=== PATIENT | female | born 1945 | race African-American/Black ===

== ENCOUNTER → 2017-04-17 | Outpatient (CLI) | payer MEDICARE, BC ==
[2014-11-19 10:20] VITALS: BP 114/58
[~2017-04-17] MED LIST: ATEN100T; CHOL10003 PO; LOSA1TAB22
--- NOTE | 2017-04-17 10:02 | RAD ---
DATE: 04/17/2017 EXAM: DIGITAL SCREEN BILAT W/CAD HISTORY: Routine screening COMPARISON: 04/25/2016, 04/15/2015 This study was interpreted with the benefit of Computerized Aided Detection (CAD). The breast parenchyma shows scattered fibroglandular densities. Breast parenchyma level B. FINDINGS: The fibroglandular pattern in the breasts is somewhat nodular in character. The known cyst in the lateral aspect of the left breast has decreased in size, now measure approximately 17 mm in the CC projection. There is an 11 mm nodule in the medial aspect of the left breast at approximately the 9:00 location which appears to have increased slightly in size over the last 2 exams. No other new or enlarging breast densities are seen. Benign type calcifications appear unchanged. No suspicious microcalcifications have developed. IMPRESSION: Slight interval enlargement of a small medial left breast nodule. In view of the patient's history of cysts, this is also probably a cyst, however, sonographic evaluation is suggested for confirmation. BI-RADS CATEGORY: 0 INCOMPLETE: NEEDS ADDITIONAL IMAGING EVALUATION AND/OR PRIOR MAMMOGRAMS FOR COMPARISON. RECOMMENDED FOLLOW-UP: ADD ADDITIONAL IMAGING PQRS compliance statement: Patient information was entered into a reminder system with a target due date for the next mammogram. Mammography is a sensitive method for finding small breast cancers, but it does not detect them all and is not a substitute for careful clinical examination. A negative mammogram does not negate a clinically suspicious finding and should not result in delay in biopsying a clinically suspicious abnormality. "Our facility is accredited by the [employer] Mammography Program."
== END | disposition home or self-care (01) ==
LOC: MAMMO 08:29
PROVIDERS: ATTEND Family Medicine
DX: Z12.31 Encounter for screening mammogram for malignant neoplasm of breast (principal)
CPT/HCPCS: G0202; 77067

== ENCOUNTER → 2017-04-19 | Outpatient (CLI) | payer MEDICARE, BC ==
[2014-11-19 10:20] VITALS: BP 114/58
--- NOTE | 2017-04-19 11:24 | RAD ---
Indication: Abnormal mammogram. Technique: Limited left breast ultrasound was performed. Multiple screening mammograms back to March 25, 2013 were reviewed in comparison. Patient has had multiple previous ultrasounds of the left breast, although never of the 9:00 position. Findings: Within the 9:00 position of the left breast 2.5 cm from the nipple there is a 9 mm oval-shaped hypoechoic mass with increased through transmission. This has a few internal echoes. It has no associated color flow. Reviewing the previous mammograms, change is very minimal going back to 2014, lesion has increased slightly when compared to 2012 and 2013. This is most likely a complicated cyst. Impression: Probably benign complicated cyst within the left breast. BI-RADS Category 3. Recommend 6 month follow-up left breast ultrasound.
== END | disposition home or self-care (01) ==
LOC: US 10:33
PROVIDERS: ATTEND Family Medicine
DX: R92.8 Other abnormal and inconclusive findings on diagnostic imaging of breast (principal)
CPT/HCPCS: 76641

== ENCOUNTER → 2017-10-26 | Outpatient (CLI) | payer MEDICARE, BC | END | disposition home or self-care (01) | LOC: US 09:49 | DX: N60.02 Solitary cyst of left breast (principal) | CPT/HCPCS: 76641 ==

== ENCOUNTER → 2017-11-17 | Outpatient (CLI) | payer MEDICARE, BC | END | disposition home or self-care (01) | LOC: KCIC DEXA 11:28 | DX: Z13.820 Encounter for screening for osteoporosis (principal); Z78.0 Asymptomatic menopausal state | CPT/HCPCS: 77080 ==

== ENCOUNTER → 2018-04-18 | Outpatient (CLI) | payer MEDICARE, BC ==
[2014-11-19 10:20] VITALS: BP 114/58
--- NOTE | 2018-04-18 10:07 | RAD ---
DATE: April 18, 2018 EXAM: MAMMO FEMI SCREENING BILATERAL, BREAST LEFT SONOGRAM HISTORY: Follow-up of complex cyst of the left breast seen sonographically. Annual screening mammogram. COMPARISON: Sonograms dated April 19, 2017 and October 26, 2017. Mammograms dated 2015 and 2017 BILATERAL 3-D SCREENING MAMMOGRAPHY 2-D digital mammographic views of both breasts were performed in the CC and MLO projections. 3-D digital tomosynthesis images of both breasts were performed in the CC and MLO projections and reviewed on a computer workstation. This study was interpreted with the benefit of Computerized Aided Detection (CAD). FINDINGS: Breast Density: SCATTERED The breast parenchyma shows scattered fibroglandular densities. Breast parenchyma level B.. Bilateral breast nodularity is again evident and is stable on the right side. The cyst seen within the upper-outer quadrant of the left breast on the previous studies has decreased in size. There is a nodule within the inferior medial aspect of the left breast which is stable mammographically and corresponds to the complex cyst seen sonographically. Coarse calcifications of the anterior aspect of the left breast are stable. No new nodules or spiculated lesions or architectural distortion or clustering of pleomorphic microcalcifications are evident. LEFT BREAST SONOGRAPHY: High-resolution sonography of the 9:00 position of the left breast 2.5 cm the nipple again reveals a complex cyst measuring 10 in greatest dimension. This is unchanged. No abnormal color flow and seen within it. IMPRESSION: No mammographic indicators for malignancy. Stable complex cyst at the 9:00 position of left breast. Recommend bilateral screening mammography in one year and left breast sonogram in one year. BI-RADS CATEGORY: 3 PROBABLE BENIGN-SHORT TERM F/U RECOMMENDED FOLLOW-UP: 12M 12 MONTH FOLLOW-UP PQRS compliance statement: Patient information was entered into a reminder system with a target due date April 19, 2019 for the next mammogram. Mammography is a sensitive method for finding small breast cancers, but it does not detect them all and is not a substitute for careful clinical examination. A negative mammogram does not negate a clinically suspicious finding and should not result in delay in biopsying a clinically suspicious abnormality. "Our facility is accredited by the [employer] Mammography [employer]." The patient's breast density may affect the ability of mammography to detect breast cancer. There are 4 categories of breast density, A, B, C and D. Breast density A means that most of the breast tissue is replaced with adipose tissue and therefore is not dense. Breast density B means that the breast tissue is mildly dense and scattered. Breast density C means that the breast tissue is heterogeneously dense. Breast density D means that the breast tissue is very dense. Breast densities especially C and D may decrease the sensitivity of mammography to detect breast cancer. Therefore, the patient may benefit from 3-D breast mammography (3D breast tomography) as a part of their screening mammogram. Insurance may or may not pay for this additional imaging. The patient's breast density based on today's mammogram is category B.
== END | disposition home or self-care (01) ==
LOC: MAMMO 08:35
PROVIDERS: ATTEND Internal Medicine
DX: Z12.31 Encounter for screening mammogram for malignant neoplasm of breast (principal); N60.02 Solitary cyst of left breast
CPT/HCPCS: 76641; 77063; 77067

== ENCOUNTER → 2019-04-22 | Outpatient (CLI) | payer MEDICARE, BC ==
[2014-11-19 10:20] VITALS: BP 114/58
--- NOTE | 2019-04-22 14:07 | RAD ---
DATE: April 22, 2019 EXAM: MAMMO FEMI HUSSEIN KERNAT, BREAST LEFT SONOGRAPHY HISTORY: History of complex cyst of the 9:00 position of the left breast. COMPARISON: April 18, 2018 sonogram and mammogram. This study was interpreted with the benefit of Computerized Aided Detection (CAD). 2-D digital mammographic views of both breasts were performed in the CC and MLO projections. 3-D digital tomosynthesis images of both breasts were performed in the CC and MLO projections and reviewed on a computer workstation. FINDINGS: Breast Density: SCATTERED The breast parenchyma shows scattered fibroglandular densities. Breast parenchyma level B.. Again seen is a nodule within the inferior medial aspect of the left breast which is smaller in size mammographically. The other breast nodularity seen bilaterally is stable. There are no new dominant suspicious masses, suspicious microcalcifications or evidence of architectural distortion. LEFT BREAST SONOGRAPHY high-resolution sonography of the 9:00 position left breast was performed. 2.5 cm from nipple, a hypoechoic nodule is seen measuring 8 mm x 6 mm x 9 mm in size. It measured 8 mm x 7 mm x 10 mm in size previously. Therefore, it is slightly smaller in size. Fine internal echoes are seen but no internal color Doppler flow is evident. This is consistent with complex cyst. IMPRESSION: Mild decrease in size of complex cyst of the 9:00 position of the left breast. Recommend routine screening mammography in one year. BI-RADS CATEGORY: 2 BENIGN FINDING RECOMMENDED FOLLOW-UP: 12M 12 MONTH FOLLOW-UP PQRS compliance statement: Patient information was entered into a reminder system with a target due date April 23, 2020 for the next mammogram. Mammography is a sensitive method for finding small breast cancers, but it does not detect them all and is not a substitute for careful clinical examination. A negative mammogram does not negate a clinically suspicious finding and should not result in delay in biopsying a clinically suspicious abnormality. "Our facility is accredited by the [employer] Mammography [employer]." The patient's breast density may affect the ability of mammography to detect breast cancer. There are 4 categories of breast density, A, B, C and D. Breast density A means that most of the breast tissue is replaced with adipose tissue and therefore is not dense. Breast density B means that the breast tissue is mildly dense and scattered. Breast density C means that the breast tissue is heterogeneously dense. Breast density D means that the breast tissue is very dense. Breast densities especially C and D may decrease the sensitivity of mammography to detect breast cancer. Therefore, the patient may benefit from 3-D breast mammography (3D breast tomography) as a part of their screening mammogram. Insurance may or may not pay for this additional imaging. The patient's breast density based on today's mammogram is category B.
== END | disposition home or self-care (01) ==
LOC: MAMMO 12:52
PROVIDERS: ATTEND Internal Medicine
DX: N60.02 Solitary cyst of left breast (principal)
CPT/HCPCS: 76641; 77066; G0279; 77062

== ENCOUNTER → 2020-04-23 | Outpatient (CLI) | payer MEDICARE, BC ==
[2014-11-19 10:20] VITALS: BP 114/58
--- NOTE | 2020-04-27 15:53 | RAD ---
DATE: 04/23/2020 12:28 PM EXAM: MAMMO FEMI SCREENING BILATERAL HISTORY: Screening COMPARISON: 04/22/2019, 04/18/2018 Bilateral CC and MLO views of the breasts were performed. Bilateral breast tomosynthesis was performed in CC and MLO projections. This study was interpreted with the benefit of Computerized Aided Detection (CAD). FINDINGS: Breast Density: SCATTERED The breast parenchyma shows scattered fibroglandular densities. Breast parenchyma level B No suspicious masses, microcalcifications or architectural distortion is present to suggest malignancy in either breast. The visualized axillae are unremarkable. IMPRESSION: No mammographic evidence of malignancy. BI-RADS CATEGORY: 1 NEGATIVE RECOMMENDED FOLLOW-UP: 12M 12 MONTH FOLLOW-UP Annual screening mammography is recommended, unless clinically indicated sooner based on symptoms or change in physical exam. PQRS compliance statement: Patient information was entered into a reminder system with a target due date for the next mammogram. Mammography is a sensitive method for finding small breast cancers, but it does not detect them all and is not a substitute for careful clinical examination. A negative mammogram does not negate a clinically suspicious finding and should not result in delay in biopsying a clinically suspicious abnormality. "Our facility is accredited by the [employer] Mammography Program."
== END ==
LOC: MAMMO 12:22
PROVIDERS: ATTEND Internal Medicine
DX: Z12.31 Encounter for screening mammogram for malignant neoplasm of breast (principal)
CPT/HCPCS: 77063; 77067

== ENCOUNTER → 2020-08-10 | Outpatient (CLI) | payer MEDICARE, BC ==
[2014-11-19 10:20] VITALS: BP 114/58
--- NOTE | 2020-08-11 11:30 | KCIC ---
XR HIP (WITH OR WITHOUT PELVIS)LEFT 1 VIEW Clinical Indication: Reason: LEFT HIP PAIN Left hip pain in recent weeks. NKI / History: Comparison: None. Findings: No acute pelvic fracture is seen. The sacral iliac joints are symmetric. The right hip joint is intac t. There is mild arthropathy of the hips for patient age. There is no acute fracture or dislocation o f the left hip. The mineralization is probably normal. Soft tissues unremarkable. IMPRESSION: Mild bilateral hip arthropathy. Electronically signed by: Tanner Iraheta MD (08/11/2020 11:27 AM) [id number]
== END ==
LOC: KCIC 14:00
PROVIDERS: ATTEND Internal Medicine
DX: M25.551 Pain in right hip (principal); Z96.641 Presence of right artificial hip joint; Z96.642 Presence of left artificial hip joint
CPT/HCPCS: 73501

== ENCOUNTER → 2020-10-13 | Outpatient (CLI) | payer MEDICARE, BC ==
[2014-11-19 10:20] VITALS: BP 114/58
--- NOTE | 2020-10-13 16:23 | KCIC ---
EXAM: Pelvic sonogram. HISTORY: Bleeding. Cervical polyp. TECHNIQUE: Transabdominal and transvaginal sonographic imaging of the pelvis performed. COMPARISON: None. FINDINGS: The uterus measures 5.7 x 3.4 x 2.7 cm. The endometrial stripe measures 3.5 mm in thickness . There is a fluid collection within the endometrial cavity, measuring approximately 2 mm in thicknes s. There is a 5 mm shadowing calcification within the uterine fundus, possibly due to a degenerating fibroid. There is a small echogenic focus within the cervix which may be due to calcification. There is no pelvic free fluid. IMPRESSION: 1. Small echogenic focus within the cervix possibly due to calcification. No convincing polyp is seen . Correlate with pelvic exam findings and possible hysteroscopy. 2. Suspected small calcified degenerating uterine fibroid. 3. Small amount of fluid within the endometrial cavity. There is no evidence of endometrial thickenin g. 4. Obscured ovaries. Electronically signed by: Parisa Logan MD (10/13/2020 4:20 PM) [id number]
== END ==
LOC: KCIC US 12:33
PROVIDERS: ATTEND Internal Medicine
DX: N84.1 Polyp of cervix uteri (principal); R58 Hemorrhage, not elsewhere classified
CPT/HCPCS: 76830; 76856

== ENCOUNTER → 2021-05-04 | Outpatient (CLI) | payer MEDICARE, BC ==
[2014-11-19 10:20] VITALS: BP 114/58
--- NOTE | 2021-05-04 11:21 | RAD ---
BILATERAL DIGITAL SCREENING 2-D AND 3-D MAMMOGRAM INDICATION: Routine screening. COMPARISON: Prior studies including one of 04/23/2020. Interpretation was made using CAD. FINDINGS: Breast Density: B RIGHT BREAST: No suspicious masses, calcifications or areas of architectural distortion are seen. LEFT BREAST: Small benign-appearing masses appear unchanged and there were benign calcifications. The re are no significant new findings. IMPRESSION: 1. No imaging evidence of malignancy. ASSESSMENT: BI-RADS 2. Benign. RECOMMENDATION: Routine annual screening mammogram. The facility will notify the patient of the results via mail. Patient information will be entered int o the mammography reminder system with a target recall date for the next mammogram. A reminder letter will be generated by the facility. Electronically signed by: Yash Polo Jr., MD (05/04/2021 11:19 AM) [id number]
== END ==
LOC: MAMMO 10:02
PROVIDERS: ATTEND Internal Medicine
DX: Z12.31 Encounter for screening mammogram for malignant neoplasm of breast (principal)
CPT/HCPCS: 77063; 77067